=== PATIENT | female | born 1995 | race Caucasian/White ===

== ENCOUNTER 2016-07-01 05:29 | Inpatient (IN) | payer BC ==
--- NOTE | ~2016-07-01 | OP ---
Record Of Operation [facility] [address] [place]. [address] NAME: JADE CEDILLO : [birth year] STATUS : ADM IN [facility]#: [id number] AGE: 20 ADM/REG DATE : 07/01/16 MR#: [id number] REPORT SERV DATE: 07/03/16 DICTATED BY: ZOILA MAYFIELD II DATE: 07/03/16 REPORT STATUS : Draft TRANSCRIBED BY: MODL DATE: 07/03/16 DATE OF PROCEDURE: 07/01/2016 PREOPERATIVE DIAGNOSES: 1. 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 2. Stenosis L4-L5 with lower extremity radiculopathy. 3. Low back pain. POSTOPERATIVE DIAGNOSES: 1. 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 2. Stenosis L4-L5 with lower extremity radiculopathy. 3. Low back pain. 4. Bilateral L4 partial pars defects. PROCEDURES: 1. Posterior L4-L5 laminectomy and facetectomy. 2. Interbody arthrodesis L4-L5. 3. Application of prosthetic device L4-L5. 4. Posterolateral arthrodesis L4-L5. 5. Posterior nonsegmental instrumentation L4-L5. 6. Use of local autograft, allograft substitute, and bone morphogenic protein. 7. Use of the microscope and stereotactic spinal imaging. SURGEON: Zoila Mayfield M.D. FLUIDS REPLACED: 2 L lactated Ringer's. ESTIMATED BLOOD LOSS: 125 mL. DRAIN: One drain. COMPLICATIONS: None. IMPLANTS: Alphatec. PREOPERATIVE HISTORY: This is a very friendly 20-year-old female, who unfortunately has a history of surgery at a very young age. She underwent L4-5 anterior-posterior surgery at the age of 13. She has now developed adjacent segment degeneration at L4-5. There was moderate disk space height loss. There also appears to be stenosis causing her leg pains. We discussed the pros and cons of continuing nonoperative care versus surgery. She was aware of the risks and benefits. I discussed this also with her mother extensively following surgery regarding the postoperative recovery as well as consideration of the expected outcomes with this particular diagnosis and surgery. DESCRIPTION OF PROCEDURE: After informed consent was obtained, the patient was brought to the operating room at her request and general anesthesia achieved. She was placed in a Record Of Operation [facility] [address] [place]. [address] NAME: JADE CEDILLO : [birth year] STATUS : ADM IN PAT#: [id number] AGE: 20 ADM/REG DATE : 07/01/16 MR#: [id number] REPORT SERV DATE: 07/03/16 DICTATED BY: ZOILA MAYFIELD II DATE: 07/03/16 REPORT STATUS : Draft TRANSCRIBED BY: DENNIS DATE: 07/03/16 prone position. The back was prepped and draped in a sterile fashion. The stereotactic spinal pin was placed into the iliac crest. The intraoperative CT scan was completed. The stereotactic guidance was then used throughout the remainder of the case. At this point, the minimally invasive incision was performed on the left at L4-L5 and the minimally invasive quadrant retractor was placed. We then dissected upon the transverse processes of L4 and L5 as well as removing the facet capsule of L4-5. We also then explored the L5-S1 area. The L5-S1 facet appeared to be well fused without any obvious macro motion. At this point, the microscope was brought into place and under microscopic visualization, the facetectomy was performed, and a pedicle to pedicle decompression achieved. At this point, the dura was then well decompressed with removal of the facets and the ligamentum flavum. The spinolaminar junction was now taken down and the contralateral recess decompressed. At this point, the interbody arthrodesis was initiated with diskectomy. The L5 nerve root was gently retracted and the disc now removed. The endplates were prepared with the carmen and the curettes, and the pituitary rongeurs. At this point, the space was now irrigated. Punctate bleeding bone was identified. Next, the prosthetic device was then placed into the anterior column of L4-L5. With the prosthetic device now well seated into L4-5 an additional amount of local autograft, allograft substitute, and bone morphogenic protein were placed along side the prosthetic device. Next, the pedicle screws were applied bilaterally using the stereotactic guidance. A repeat CT scan confirmed acceptable placement of the implants. The rods were then well assembled and final tightening performed. Next, the transverse processes of L4 and L5 were decorticated and local autograft, allograft substitute, and bone morphogenic protein placed along these decorticated surfaces. A deep drain was placed followed by standard closure. The patient was extubated and transferred to PACU in stable condition. TESSY/DENNIS Zoila Mayfield II, M.D. / [id number] CC: Mark Park II, M.D.
[~2016-07-01 05:29] MED LIST: ABILIFY2 PO; ABX; CELEXA40 MG PO; CENTRUM PO; CYMBALTA60 PO; EFFEX75 PO; ENDOCET1 TA1 PO; FLEXARIL PO; FLEXERIL5 MG PO; HABIT14 TOP; IBU800 PO; IMITREX50 PO; KLONO1 PO; LEXAPRO20 PO; MEDROLPAK4 PO; METHATAB40 PO; NEUR300 PO; OMNICEF300 PO; OPANA ER20 MG PO; PERCOCET1 TA2 PO; PERCOCET1 TA3 PO; PERCOCET1 TA4 PO; PYR100B PO; SEASONIQUE OR; STEROID INJECTION IM; TOPAMAX50 MG PO; ULTRAM50 PO
[2016-07-02 06:34] LABS: BUN (BLOOD UREA NITROGEN) 12 MG/DL (6-23); CHLORIDE, SERUM 113 MMOL/L (96-112); CO2 (CARBON DIOXIDE) 24 MMOL/L (24-34); CREATININE 0.71 MG/DL (0.55-1.02); GFR AFRICAN AMERICAN 140 ML/MIN (>=60); GFR NON AFRICAN AMERICAN 121 ML/MIN (>=60); POTASSIUM, SERUM 3.7 MMOL/L (3.5-5.3); SODIUM, SERUM 143 MMOL/L (135-148)
[2016-07-02 06:36] LABS: GLUCOSE, SERUM 154 MG/DL (60-99)
[2016-07-02 07:12] LABS: BASOPHILS 0 %; EOSINOPHILS 0 %; IMMATURE GRANULOCYTES 0.3 %; IMMATURE GRANULOCYTES ABSOLUTE 0.06 10/3/uL (0.0-0.11); LYMPHOCYTES 8.3 %; LYMPHOCYTES ABSOLUTE 1.48 10/3/uL (0.67-4.30); MANUAL DIFF NO %; MEAN CORPUS HGB CONC 34.2 g/dL (32.0-36.0); MEAN CORPUSCULAR HEMOGLOB 30.2 pg (26.0-34.0); MEAN CORPUSCULAR VOLUME 88.2 fL (80-100); MEAN PLATELET VOLUME 9.8 fL (9.2-13.0); MONOCYTES 2.6 %; MONOCYTES ABSOLUTE 0.46 10/3/uL (0.21-1.20); NEUTROPHILS 88.8 %; NEUTROPHILS ABSOLUTE 15.88 10/3/uL (2.02-8.40); PLATELET COUNT 307 10/3/uL (150-400); RBC DISTRIBUTION WIDTH 12.9 % (12.0-16.0); RED CELL COUNT 4.31 10/6/uL (4.0-5.6); WHITE BLOOD CELLS 17.9 10/3/uL (4.5-10.5)
[2016-07-03] MEDS ORDERED: V5 PO (08:14)
[2016-07-03] MEDS ORDERED: MSCONT60 PO (08:14)
[2016-07-03] MEDS ORDERED: PERCOCET 10/3251 TAB PO (08:14)
== END 2016-07-03 11:07 | disposition home or self-care (01) | DRG 460 ==
LOC: SDC/OF 05:29 → PACU 11:56 → 4SO 13:57
PROVIDERS: Orthopaedic Surgery
PROC: 0SG00A1 (ICD-10-PCS; principal; 2016-07-01 07:15)
PROC: 8E0WXBG Computer Assisted Procedure of Trunk Region, With Computerized Tomography (ICD-10-PCS; principal; 2016-07-01 07:15)
PROC: 0SB20ZZ Excision of Lumbar Vertebral Disc, Open Approach (ICD-10-PCS; principal; 2016-07-01 07:15)
DX: M51.36 Other intervertebral disc degeneration, lumbar region (principal); F31.9 Bipolar disorder, unspecified; M48.06 Spinal stenosis, lumbar region; M43.16 Spondylolisthesis, lumbar region; M54.16 Radiculopathy, lumbar region; G89.29 Other chronic pain; M54.9 Dorsalgia, unspecified; Z79.891 Long term (current) use of opiate analgesic
CPT/HCPCS: 80048; 82962; 84703; 85025; 87641; 88304; 88311; 97161-GP; A9270-GY; C1713; C1768; C1769; J0690; J1170; J1644; J2250; J2405; J2710; J3010; J3370